=== PATIENT | female | born 2005 | race Hispanic/Latino ===

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

== ENCOUNTER 2024-09-21 08:16 | Outpatient (CLI) | payer BC ==
[2024-09-21 09:22] LABS: #Basophils 0.05 10x3/uL (0.0-0.2); %Basophils 0.5 % (0.0-1.0); %Eosinophils 3.1 % (0.0-10.0); %Lymphocytes 28.8 % (21.0-51.0); %Monocytes 4.9 % (0.0-10.0); %Neutrophils 62.4 % (42.0-75.0); Hematocrit 41.2 % (36.0-47.0); Hemoglobin 14.2 g/dL (12.0-16.0); Mean Corpuscular HGB CONC 34.5 g/dL (32.0-36.0); Mean Corpuscular Hemoglobin 32.3 pg (27.0-31.0); Mean Corpuscular Volume 93.6 fL (78.0-98.0); Mean Platelet Volume 10.3 fL (7.4-10.4); Platelet Count 396 10x3/uL (130-400); RBC Distribution Width 12.3 % (11.5-14.5)
[2024-09-21 09:32] LABS: BHCG - Serum Negative (NEGATIVE); Pregs Control Background? CLEAR/WHITE (CLR/WHITE); Pregs Control Bar Appear? YES (CONTROL BAR)
[2024-09-21 09:35] LABS: Hemoglobin A1c 5.2 % (4.0-6.0)
[2024-09-21 09:38] LABS: ALT (SGPT) 38 U/L (8-55); AST (SGOT) 27 U/L (5-34); Albumin 4.1 g/dL (3.5-5.0); Alkaline Phosphatase 71 U/L (40-110); Anion Gap 13 mmol/L (10-20); BUN (Urea Nitrogen) 11 mg/dL (7.0-18.7); Bilirubin, Total 0.3 mg/dL (0.2-1.2); Calc. Creatinine Clearance 0 mL/min (70-130); Calcium 9.4 mg/dL (7.8-10.44); Carbon Dioxide 24 mmol/L (22-29); Chloride 106 mmol/L (98-107); Estimated GFR 127; Globulin 3.5 g/dL (2.4-3.5); Glucose 95 mg/dL (70-105); Protein, Total 7.6 g/dL (6.0-8.3); Sodium 139 mmol/L (136-145)
== END 2024-09-21 08:17 | disposition home or self-care (01) ==
LOC: LABBT 08:16
PROVIDERS: ATTEND Specialist
DX: Z01.812 Encounter for preprocedural laboratory examination (principal); E66.01 Morbid (severe) obesity due to excess calories
CPT/HCPCS: 80053; 83036; 84703; 85025

== ENCOUNTER 2024-09-29 06:34 | Observation (INO) | payer BC ==
[2024-09-29] MEDS ORDERED: SUGAMMADEX SODIUM 200 MG/2 ML VIAL ONE (07:19)
[2024-09-29] MEDS ORDERED: HYDROmorphone 2 MG/ML VIAL ONE (07:19)
[2024-09-29] MEDS ORDERED: CEFAZOLIN 2 GM VIAL ONE (07:26)
[2024-09-29] MEDS ORDERED: Midazolam HCl 2 mg/2 ml Vial ONE (07:29)
[2024-09-29] MEDS ORDERED: Ondansetron PF 4 MG/2 ML Vial ONE (07:30)
[2024-09-29] MEDS ORDERED: fentaNYL 50 mcg/mL 1 mL Vial ONE (07:30)
[2024-09-29] MEDS ORDERED: Dexmedetomidine 200 MCG/2 ML VIAL ONE (07:30)
[2024-09-29] MEDS ORDERED: PROPOFOL 20 ML ONE (07:30)
[2024-09-29] MEDS ORDERED: Lidocaine 2% PF 5 ML VIAL ONE (07:30)
[2024-09-29] MEDS ORDERED: Rocuronium Bromide 10 MG/ML (10ML VIAL) ONE (07:30)
[2024-09-29] MEDS ORDERED: Dexamethasone 20 MG/5 ML VIAL ONE (07:30)
[2024-09-29] MEDS ORDERED: Indocyanine Green 25 MG/10 ML VIAL ONE (08:05)
[2024-09-29] MEDS ORDERED: PHENYLEPHRINE-NS 100 MCG/ML 10 ML SYRINGE ONE (08:15)
[2024-09-29] MEDS ORDERED: Promethazine HCl 25 MG/ML VIAL IM PRN (09:48)
[2024-09-29] MEDS ORDERED: Meperidine HCl/PF 25 MG/ML VIAL SLOW IVP PRN (09:48)
[2024-09-29] MEDS ORDERED: HYDROmorphone 2 MG/ML VIAL SLOW IVP PRN (09:48)
[2024-09-29] MEDS ORDERED: Ondansetron HCl/PF 4 MG/2 ML Vial IVP PRN (09:48)
[2024-09-29] MEDS ORDERED: Glucagon 1 MG/ML KIT IM PRN (10:20)
[2024-09-29] MEDS ORDERED: hydrALAZINE 20 MG/ML VIAL SLOW IVP PRN (10:20)
[2024-09-29] MEDS ORDERED: diphenhydrAMINE 50 MG/ML VIAL IVP PRN (10:20)
[2024-09-29] MEDS ORDERED: Ipratropium/Albuterol 3 ML NEB NEB PRN (10:20)
[2024-09-29] MEDS ORDERED: Dextrose 50% Abboject 50 ML SYRINGE SLOW IVP PRN (10:20)
[2024-09-29] MEDS ORDERED: Dextrose 5% in Water 1,000 ML IV PRN (10:20)
[2024-09-29] MEDS ORDERED: Promethazine HCl 25 MG/ML VIAL ONE (11:16)
[2024-09-29] MEDS: D5 1/2 NS w/20 mEq KCL 1,000 ML IV SCH (12:16)
[2024-09-29] MEDS: Ketorolac Tromethamine 30 MG (1 mL) VIAL IVP SCH (12:16)
[2024-09-29 12:56] VITALS: BMI 40.7
[2024-09-29] MEDS: Ondansetron PF 4 MG/2 ML Vial IVP PRN (14:17)
[2024-09-29] MEDS: Promethazine HCl 25 MG/ML VIAL IM PRN (18:50)
[2024-09-29] MEDS: Gabapentin 300 MG CAP PO SCH (20:51)
[2024-09-29] MEDS: Enoxaparin 40 MG (0.4 mL) SYRINGE SC SCH (20:52)
[2024-09-29] MEDS: oxyCODONE 5 MG TAB PO PRN (20:52)
[2024-09-30 05:44] LABS: #Basophils Less than 0.03 10x3/uL (0.0-0.2); #Eosinophils Less than 0.03 10x3/uL (0.0-0.7); %Basophils 0.1 % (0.0-1.0); %Eosinophils 0.1 % (0.0-10.0); %Lymphocytes 16.2 % (21.0-51.0); %Monocytes 8.2 % (0.0-10.0); %Neutrophils 74.9 % (42.0-75.0); Hematocrit 36.4 % (36.0-47.0); Hemoglobin 12.4 g/dL (12.0-16.0); Mean Corpuscular HGB CONC 34.1 g/dL (32.0-36.0); Mean Corpuscular Hemoglobin 32.3 pg (27.0-31.0); Mean Corpuscular Volume 94.8 fL (78.0-98.0); Mean Platelet Volume 10.4 fL (7.4-10.4); Platelet Count 339 10x3/uL (130-400); Red Blood Cell (RBC) Count 3.84 mill/uL (4.20-5.40)
[2024-09-30 05:59] LABS: Anion Gap 12 mmol/L (10-20); BUN (Urea Nitrogen) 7 mg/dL (7.0-18.7); Calc. Creatinine Clearance 204 mL/min (70-130); Calcium 8.6 mg/dL (7.8-10.44); Carbon Dioxide 21 mmol/L (22-29); Chloride 107 mmol/L (98-107); Estimated GFR 122; Glucose 103 mg/dL (70-105); Potassium 4.1 mmol/L (3.5-5.1); Sodium 136 mmol/L (136-145)
[2024-09-30 08:31] VITALS: TEMP 98.5
[2024-09-30] MEDS: Pantoprazole 40 MG VIAL IVP SCH (08:59)
[2024-09-30 12:00] VITALS: BP 127/81
[2024-09-30] MEDS: traMADol HCl 50 MG TAB PO PRN (14:06)
[2024-09-30] MEDS: FLU (Fluarix Triv) TS24-25(6MOS UP)/PF 45 MCG/0.5 ML Syringe IM ONE (14:11)
== END 2024-09-30 14:30 | disposition home or self-care (01) ==
LOC: SDC 06:34 → SURG B 11:44 → INTOOBSV 11:44
PROVIDERS: ADMIT Specialist; ATTEND Specialist
PROC: 0DB64ZZ Excision of Stomach, Percutaneous Endoscopic Approach (ICD-10-PCS; principal; 2024-09-29)
DX: E66.01 Morbid (severe) obesity due to excess calories (principal); R73.03 Prediabetes; R51.9 Headache, unspecified; Z90.89 Acquired absence of other organs; Z68.41 Body mass index [BMI] 40.0-44.9, adult
CPT/HCPCS: 36415; 80048; 85025; 88307; 90656; C1889; J1100; J1650; J1885; J2250; J2405; J2470; J2550; J2704; J3010; J3480; S2900